=== PATIENT | female | born 1955 | race Caucasian/White ===

== ENCOUNTER 2020-05-18 09:13 | Outpatient (CLI) | payer MEDICARE, OTHER ==
--- NOTE | 2020-05-18 16:35 | Ultrasound Report ---
PROCEDURE: Head or Neck Soft Tissue INDICATIONS: ANT CERV LYMPHADENOPATHY TECHNIQUE: Real time scanning was performed of the neck region of interest, with image documentation . COMPARISON: None. FINDINGS: No suspicious soft tissue neck abnormality seen bilaterally. There are normal-appearing ri ght-sided cervical chain lymph nodes correlating with area of concern. They demonstrate reniform morp hology with central fatty hilum and normal cortex. The left neck was imaged for comparison demonstrat ing similar appearing normal lymph nodes. IMPRESSION: Normal appearing right-sided cervical chain lymph nodes in the area of clinical concern. These appear similar to the left neck. Reviewed by: Jorge Arias MD on 05/18/2020 4:33 PM PST Approved by: Jorge Arias MD on 05/18/2020 4:33 PM PST Station ID: [id number]
== END 2020-05-18 09:14 | disposition home or self-care (01) ==
LOC: DI 09:13
PROVIDERS: ATTEND Registered Nurse
DX: R59.0 Localized enlarged lymph nodes (principal); I34.1 Nonrheumatic mitral (valve) prolapse
CPT/HCPCS: 76536

== ENCOUNTER 2020-05-18 09:17 | Outpatient (CLI) | payer MEDICARE, OTHER ==
--- NOTE | 2020-05-18 10:27 | DEXA Report ---
PROCEDURE: Dexa Spine and/or Hip INDICATIONS: POSTMENOPAUSAL TECHNIQUE: Dual energy x-ray absorptiometry (DXA) was performed on a Fandium System. Regions measur ed are the AP Spine, femoral neck, and if needed forearm. COMPARISON: None. FINDINGS: Lumbar Spine: Bone Mineral Density 0.954 g/cm/cm,T score -1.9, osteopenia Left Femoral Neck: Bone Mineral Density 0.867 g/cm/cm, T score -1.1, osteopenia (T score greater or equal to -1.0: NORMAL) (T score from -1.1 to -2.4: OSTEOPENIA) (T score less than or equal to -2.5 to: OSTEOPOROSIS) Impression: Osteopenia. Patient is at increased risk for fracture. Patients with diagnosis of osteoporosis or osteopenia should have regular bone mineral density assess ment. For those eligible for Medicare, routine testing is allowed once every 2 years. Testing frequ ency can be increased for patients who have rapidly progressing disease or for those who are receivin g medical therapy to restore bone mass. Reviewed by: Jorge Arias MD on 05/18/2020 10:25 AM PST Approved by: Jorge Arias MD on 05/18/2020 10:25 AM PST Station ID: [id number]
== END 2020-05-18 09:18 | disposition home or self-care (01) ==
LOC: DI 09:17
PROVIDERS: ATTEND Registered Nurse
DX: M85.89 Other specified disorders of bone density and structure, multiple sites (principal); Z78.0 Asymptomatic menopausal state; R59.0 Localized enlarged lymph nodes; I34.1 Nonrheumatic mitral (valve) prolapse
CPT/HCPCS: 76536; 77080

== ENCOUNTER 2020-05-31 07:36 | Outpatient (CLI) | payer MEDICARE | END 2020-05-31 07:37 | disposition home or self-care (01) | LOC: DI 07:36 | PROVIDERS: ATTEND Registered Nurse | DX: I34.1 Nonrheumatic mitral (valve) prolapse (principal); I49.3 Ventricular premature depolarization; I51.7 Cardiomegaly | CPT/HCPCS: 93306 ==

== ENCOUNTER 2020-07-26 09:47 | Outpatient (CLI) | payer MEDICARE, OTHER ==
--- NOTE | 2020-07-27 09:01 | Mammography Report ---
BILATERAL DIGITAL SCREENING MAMMOGRAM 3D/2D WITH EXAGGERATED CC: 07/26/2020 CLINICAL: Routine screening. Comparison is made to exams dated: 07/04/2014 mammogram and 04/26/2014 mammogram - [facility]. The tissue of both breasts is predominantly fatty. No significant masses, calcifications, or other findings are seen in either breast. There has been no significant interval change. IMPRESSION: NEGATIVE There is no mammographic evidence of malignancy. A 1 year screening mammogram is recommended. This exam was interpreted at Station ID: [id number]. NOTE: For mammograms, a report in lay terms will be sent to the patient. Approximately 15% of breast malignancies will not be visualized mammographically. In the management of a palpable breast mass, a negative mammogram must not discourage biopsy of a clinically suspicious lesion. Electronically Signed By: Tee Quinonez M.D., jr/heaven:07/26/2020 16:29:26 ACR BI-RADS Category 1: Negative 3341F PARENCHYMAL PATTERN: (F) - The breast(s) demonstrate(s) diffuse fatty replacement. BI-RADS CATEGORY: (1) - 1 RECOMMENDATION: (ANNUAL) - Recommend routine annual screening mammography. [id number] 1 year screening LATERALITY: (B)
== END 2020-07-26 09:48 | disposition home or self-care (01) ==
LOC: DI.S 09:47
PROVIDERS: ATTEND Registered Nurse
DX: Z12.31 Encounter for screening mammogram for malignant neoplasm of breast (principal)

== ENCOUNTER 2021-08-04 10:23 | Outpatient (CLI) | payer MEDICARE ==
--- NOTE | 2021-08-04 11:00 | XRAY Report ---
PROCEDURE: Knee 3 View LT INDICATIONS: PAIN OF LEFT KNEE JOINT TECHNIQUE: 3 views of the left knee(s) were acquired. COMPARISON: None. FINDINGS: Bones: No fractures or dislocations. No suspicious bony lesions. At the superior aspect of the pat julieta, there is an enthesophyte seen. Mild, age-appropriate degenerative changes are seen, which are worst medially. Soft tissues: No joint effusion. No suspicious soft tissue calcifications. IMPRESSION: No significant plain film abnormality is seen for age. If it would be helpful for clinical management decision making, please consider a dedicated, schedule d knee MRI for further evaluation (assuming that there is no contraindication). Reviewed by: Kael He MD on 08/04/2021 9:58 AM [facility] Approved by: Kael He MD on 08/04/2021 9:58 AM [facility] Station ID: [id number]
== END 2021-08-04 10:24 | disposition home or self-care (01) ==
LOC: DI.S 10:23
PROVIDERS: ATTEND Registered Nurse
DX: M25.562 Pain in left knee (principal)

== ENCOUNTER 2022-01-01 07:21 | Day surgery (SDC) | payer MEDICARE ==
[2022-01-01] MEDS ORDERED: LACTATED RINGERS 1,000 ML IV ONE ×2 (07:29→09:06)
[2022-01-01] MEDS ORDERED: LIDOCAINE-MPF 2% 5 ML VIAL ONE (08:13)
[2022-01-01] MEDS ORDERED: PROPOFOL 500 MG/50 ML 500 MG/50 ML VIAL ONE (08:13)
--- NOTE | 2022-01-01 08:13 | ANESTHESIA ---
Pre-Anesthesia VS, & Labs - Diagnosis screening - Procedure colonoscopy Vital Signs: Temp Pulse Resp BP Pulse Ox 36.6 C 80 18 161/90 H 99 01/01/22 07:29 01/01/22 07:29 01/01/22 07:29 01/01/22 07:29 01/01/22 07:29 Height: 5 ft 7 in Weight (kg): 61 kg Body Mass Index: 21.0 BMI Classification: Healthy weight - NPO >8 hours - Is Patient ?: No - Lab Results Lab results reviewed: Yes Home Medications and Allergies No Known Home Medications 08/11/14 Allergies/Adverse Reactions: Allergies Allergy/AdvReac Type Severity Reaction Status Date / Time No Known Drug Allergies Allergy Verified 01/01/22 07:44 Anes History & Medical History - Anesthetic History Anesthesia Complications: reports: No previous complications Family history of Anesthesia Complications: Denies Family history of Malignant Hyperthermia: Denies - Medical History Cardiovascular: reports: None Pulmonary: reports: None Gastrointestinal: reports: None Urinary: reports: None Musculoskeletal: reports: None Endocrine/Autoimmune: reports: None Skin: reports: Other Psychosocial: reports: No issues indicated History of Cancer?: No - Surgical History General: reports: Colonoscopy Orthopedic: reports: Other Dermatologic: reports: Skin cancer surgery Exam General: Alert, Oriented x3, Cooperative Dental: WNL Mouth Openin Fingerbreadth Neck Mobility: Normal Mallampati classification: II Thyromental Distance: 4-6 cm Respiratory: Lungs clear, Normal breath sounds, No respiratory distress Cardiovascular: Regular rate Neurological: Normal speech Mental/Cognitive Status: Alert/Oriented X3, Normal for patient Cognitive Status: Within normal limits Plan Anesthesia Type: Total IV Consent for Procedure(s) Verified and Reviewed: Yes Code Status: Attempt Resuscitation ASA classification: 2-Mild systemic disease Is this case an emergency?: No
[2022-01-01] MEDS ORDERED: GLYCOPYRROLATE 1 MG/5 ML VIAL ONE (08:59)
[2022-01-01 09:46] VITALS: BP 155/84
--- NOTE | 2022-01-01 11:30 | ANESTHESIA POST OP EVALUATION ---
Anesthesia Post Eval - Post Anesthesia Eval Vitals: Last Vital Signs Temp 36.5 C 01/01/22 09:43 Pulse 75 01/01/22 09:43 Resp 16 01/01/22 09:43 BP 155/84 H 01/01/22 09:43 Pulse Ox 100 01/01/22 09:43 CV Function Including HR & BP: Stable Pain Control: Satisfactory Nausea & Vomiting: Negative Mental Status: Baseline Respiratory Status: Airway Patent Hydration Status: Satisfactory Anesthesia Complications: None
== END 2022-01-01 07:22 | disposition home or self-care (01) ==
LOC: SDS 07:21
PROVIDERS: ATTEND Surgery
PROC: 0DBK8ZX Excision of Ascending Colon, Via Natural or Artificial Opening Endoscopic, Diagnostic (ICD-10-PCS; principal; 2022-01-01 08:30)
DX: Z12.11 Encounter for screening for malignant neoplasm of colon (principal); D12.2 Benign neoplasm of ascending colon; K64.8 Other hemorrhoids; R00.1 Bradycardia, unspecified; Z85.828 Personal history of other malignant neoplasm of skin; Z86.010 Personal history of colon polyps
CPT/HCPCS: 45380; J7120

== ENCOUNTER 2022-08-12 15:00 | Outpatient (CLI) | payer MEDICARE | END 2022-08-12 23:59 | disposition home or self-care (01) | LOC: LAB 15:00 | PROVIDERS: ATTEND Registered Nurse | DX: L02.91 Cutaneous abscess, unspecified (principal) | CPT/HCPCS: 87070; 87181; 87205 ==

== ENCOUNTER 2022-09-11 15:48 | Outpatient (CLI) | payer MEDICARE ==
--- NOTE | 2022-09-11 18:05 | XRAY Report ---
PROCEDURE: Ribs w/PA Chest LT INDICATIONS: LEFT SIDED RIB PAIN TECHNIQUE: 2 views of the left ribs were acquired, along with a single view chest. COMPARISON: Chest films dated 01/03/2022 FINDINGS: Surgical changes and devices: None. Bones and chest wall: No fractures or dislocations. No suspicious bony lesions. Overlying soft tis sues appear unremarkable. Lungs and pleura: No pleural effusions or pneumothorax. Lungs appear clear. Mediastinum: Mediastinal contours appear normal. Heart size is normal. IMPRESSION: No evidence of displaced left rib fracture. No evidence of acute pulmonary process. Reviewed by: Victorino Red MD on 09/11/2022 6:04 PM PDT Approved by: Victorino Red MD on 09/11/2022 6:04 PM PDT Station ID: [id number]
== END 2022-09-11 15:49 | disposition home or self-care (01) ==
LOC: DI.S 15:48
PROVIDERS: ATTEND Physician Assistant Medical
DX: R07.81 Pleurodynia (principal)

== ENCOUNTER 2023-08-05 09:55 | Emergency (ER) | payer MEDICARE ==
[2023-08-05 11:14] VITALS: BP 173/82; O2SAT 96
--- NOTE | 2023-08-05 11:23 | ED Physician Documentation ---
History of Present Illness - Stated complaint Stated Complaint: HIGH BP - Chief complaint Chief Complaint: Cardiac - History obtained from History obtained from: Patient - Additonal information Additional information: Patient is a 68-year-old female with a history of hypertension presenting for evaluation of elevated blood pressure. Patient states she was recently found to have an aortic aneurysm and is scheduled for operative repair through the emergency [facility] in August. She has been having elevated blood pressure recently. She was on just losartan. Last week she went to see the cardioth oracic surgeon and noted that her blood pressure was elevated (Systolic 180s) and also started her on metoprolol. She has been taking this for approximately 8 days now. She was having routine outpatient labs done this morning and [place] [facility] [place] as she has also noticed that it has been high at home and she was not sure if it was accurate. They noted that her blood pressure reading was elevated with systolics in the 200s and recommended she come immediately to the emergency department. Patient denies chest pain or shortness of air. She denies numbness or weakness in arms and legs. Denies headache or dizziness. Review of Systems Constitutional: denies: Fever Cardiac: denies: Chest pain / pressure Respiratory: denies: Dyspnea GI: denies: Abdominal Pain, Vomiting Neurologic: denies: Syncope, Headache PD PAST MEDICAL HISTORY - Past Medical History Past Medical History: Yes Cardiovascular: None Respiratory: None Endocrine/Autoimmune: None GI: None : None HEENT: None Psych: None Musculoskeletal: None Derm: Other Other Past Medical History: Aortic Aneurysm - Past Surgical History Past Surgical History: Yes General: Colonoscopy Ortho: Other Derm: Skin cancer surgery - Present Medications Home Medications: Ambulatory Orders Medication Instructions Recorded Confirmed LORazepam [Ativan] 0.5 mg PO PRN PRN 08/05/23 08/05/23 Losartan [Cozaar] 50 mg PO DAILY 08/05/23 08/05/23 Metoprolol Succinate [Toprol Xl] 25 mg PO DAILY 08/05/23 08/05/23 Prednisone [Taco] 4 mg PO DAILY 08/05/23 08/05/23 - Allergies Allergies/Adverse Reactions: Allergies Allergy/AdvReac Type Severity Reaction Status Date / Time No Known Drug Allergies Allergy Verified 08/05/23 10:07 - Social History Does the pt smoke?: No Smoking Status: Never smoker Does the pt drink ETOH?: No Does the pt have substance abuse?: No - Immunizations Immunizations are current?: No PD ED PE NORMAL - General General: Alert and oriented X 3, No acute distress, Well developed/nourished - HEENT HEENT: Atraumatic, Moist mucous membranes, Pharynx benign - Neck Neck: Supple, no meningeal sign - Cardiac Cardiac: RRR, Strong equal pulses - Respiratory Respiratory: No respiratory distress, Clear bilaterally - Abdomen Abdomen: Normal bowel sounds, Soft, Non tender, Non distended - Derm Derm: Warm and dry - Extremities Extremities: No edema - Neuro Neuro: Alert and oriented X 3, network support specialist 2-12 intact, No motor deficit, No sensory deficit, Normal speech Results - Vitals Vitals: Vital Signs - 24 hr 08/05/23 08/05/23 08/05/23 10:00 11:07 11:13 Temperature 36.3 C L Heart Rate 73 70 67 Respiratory 16 17 18 Rate Blood Pressure 206/87 H 173/82 H 173/82 H O2 Saturation 99 97 96 08/05/23 11:31 Temperature Heart Rate 68 Respiratory 20 Rate Blood Pressure 173/82 H O2 Saturation 96 Oxygen O2 Source Room air PD Medical Decision Making - ED course ED course: Patient presenting for evaluation of high blood pressure. She was sent from PCPs office where she was getting outpatient labs. Does not seem like she saw the provider though today and was sent by staff. She is asymptomatic. Initial blood pressure systolic is 206. On recheck Blood pressure is 173/82. She has remained asymptomatic. Per [facility] policies on asymptomatic hypertension there is no indications for rapidly lowering her blood pressure here today. Recommend close follow-up with her primary care provider for recheck in the office and to discuss further blood pressure medication titration. Patient counseled on conc erning symptoms to return for. Departure - Departure Disposition: 01 Home, Self Care Clinical Impression: Asymptomatic hypertension Condition: Stable Instructions: ED Hypertension Conf Out Of Control Comments: You need close follow up with [employer] Lita regarding your blood pressure. It has improved to 173/82 without any specific treatment in the ER and we want Do not want to aggressively lower your blood pressure too quickly as this can cause other issues such as fainting spells or strokes. Please continue with your losartan and metoprolol. Please keep a record of your blood pressures at home once your cuff arrives. Return to the ER with any worsening symptoms. Forms: PCP List Discharge Date/Time: 08/05/23 11:31
== END 2023-08-05 11:31 | disposition home or self-care (01) ==
LOC: ED 09:55
DX: I10 Essential (primary) hypertension (principal)
CPT/HCPCS: 99281; 99283

== ENCOUNTER 2024-01-11 14:31 | Emergency (ER) | payer MEDICARE ==
--- NOTE | 2024-01-11 14:45 | ED Physician Documentation ---
PD HPI Fall - Stated complaint Stated Complaint: FELL DOWN STEP/INJURY - History obtained from History obtained from: Patient, Family - Additional information Additional information: She is about 4 months out from open heart surgery for an aortic aneurysm repair. She did have perioperative atrial fibrillation and continues to be anticoagulated for that. She had a mechanical fall at her son's house tripping over the edge of a door landing on her right side. She hit her head without loss of consciousness. The main area of pain is the right shoulder, she cannot range it at all. She also has moderate pain of the right hip with a large bruise forming and 2 spots on her foot and ankle that are starting to hurt. PD PAST MEDICAL HISTORY - Past Medical History Cardiovascular: None Respiratory: None Endocrine/Autoimmune: None GI: None : None HEENT: None Psych: None Musculoskeletal: None Derm: Other - Past Surgical History Past Surgical History: Yes General: Colonoscopy Ortho: Other Derm: Skin cancer surgery - Present Medications Home Medications: Ambulatory Orders Medication Instructions Recorded Confirmed LORazepam [Ativan] 0.5 mg PO PRN PRN 08/05/23 08/05/23 Losartan [Cozaar] 50 mg PO DAILY 08/05/23 01/11/24 Metoprolol Succinate [Toprol Xl] 25 mg PO DAILY 08/05/23 08/05/23 Apixaban [Eliquis] 1 tab PO DAILY 01/11/24 01/11/24 - Allergies Allergies/Adverse Reactions: Allergies Allergy/AdvReac Type Severity Reaction Status Date / Time No Known Drug Allergies Allergy Verified 08/05/23 10:07 - Social History Does the pt smoke?: No Smoking Status: Never smoker Does the pt drink ETOH?: No Does the pt have substance abuse?: No - Immunizations Immunizations are current?: No PD ED PE NORMAL - Vitals Vital signs reviewed: Yes - General General: Alert and oriented X 3, No acute distress - HEENT HEENT: PERRL, EOMI, Other (There is a small abrasion about quarter size on the right forehead) - Neck Neck: Supple, no meningeal sign, No bony TTP - Cardiac Cardiac: RRR, No murmur - Respiratory Respiratory: No respiratory distress, Clear bilaterally - Abdomen Abdomen: Non tender - Back Back: No CVA TTP, No spinal TTP - Derm Derm: Normal color, Warm and dry - Extremities Extremities: Other (see MDM text box too small) Results - Vitals Vitals: Vital Signs - 24 hr 01/11/24 14:32 Temperature 36.9 C Heart Rate 72 Respiratory 16 Rate Blood Pressure 104/85 H O2 Saturation 100 Oxygen O2 Source Room air - Rads (name of study) Right humerus x-ray demonstrating a right humeral neck fracture Relevant Findings:: Final report received, EMP independent interpretation of test CT of the head is without acute disease Relevant Findings:: Final report received, EMP independent interpretation of test Right hip x-ray without acute abnormality Relevant Findings:: Final report received, EMP independent interpretation of test Right foot x-ray is unremarkable Relevant Findings:: Final report received, EMP independent interpretation of test Right ankle x-ray is negative Relevant Findings:: Final report received, EMP independent interpretation of test PD Medical Decision Making - ED course ED course: Extremity exam: Severely tender about the right glenohumeral joint without obvious deformity. Cannot range it at all. There is a large bruise over the posterolateral right hip, but the hip itself does not seem particularly tender. She is tender over both the lateral malleolus of the right ankle and the proximal fifth metatarsal. She presents with multiple injuries after a fall, the main 1 being the right shoulder. She also has some hip pain and a contusion there and a minor head injury but she is on anticoagulation so extensive imaging was done with the only positive finding being the humeral fracture. She was placed in a sling. I have low pretest probability for hip fracture given that she can walk and really is not tender over the hip anteriorly. She is given close return precautions. Offered narcotic analgesia but she has oxycodone leftover from prior sternotomy surgery. She did receive 1 mg of IM Dilaudid here with improvement in her pain. Departure - Departure Disposition: 01 Home, Self Care Clinical Impression: Chronic anticoagulation, Contusion of right foot Injury of hip and thigh Qualifiers: Encounter type: initial encounter Laterality: right Qualified Code(s): S79.911A - Unspecified injury of right hip, initial encounter; S79.921A - Unspecified injury of right thigh, initial encounter Head injury Qualifiers: Encounter type: initial encounter Qualified Code(s): S09.90XA - Unspecified injury of head, initial encounter Right humeral fracture Qualifiers: Encounter type: initial encounter Humerus Location: proximal Fracture type: closed Fracture morphology: other fracture Fracture alignment: nondisplaced Qualified Code(s): S42.294A - Other nondisplaced fracture of upper end of right humerus, initial encounter for closed fracture Condition: Good Record reviewed to determine appropriate education?: Yes Instructions: ED Fx Shoulder Follow-Up: [facility]opedic [facility] [Provider Group] - Within 1 week Comments: The only positive finding was the proximal humerus fracture. You can use the sling as needed but it is okay to start gentle range of motion exercises when you are able. You can take the oxycodone that you have at home anywhere from half a tablet to 2 tablets every 6 hours for pain. Follow-up with our ortho pedic surgeons for further evaluation and treatment. If you develop new or worsening symptoms or if the hip pain were to progress such that she could not walk, please return for reevaluation.
[2024-01-11] MEDS: HYDROmorphone 1 MG/ML CARPUJECT IM STA (15:12)
[2024-01-11] MEDS: ONDANSETRON ODT 4 MG TABLET TL STA (15:13)
--- NOTE | 2024-01-11 15:30 | CT Report ---
PROCEDURE: Head WO INDICATIONS: head inj TECHNIQUE: Noncontrast 4.5 mm thick angled axial sections acquired from the foramen magnum to the vertex. For r adiation dose reduction, the following was used: automated exposure control, adjustment of mA and/or kV according to patient size. COMPARISON: None. FINDINGS: Image quality: Excellent. CSF spaces: Basal cisterns are patent. No extra-axial fluid collections. Ventricles are symmetric in size and shape. Brain: No midline shift. No intracranial masses or hemorrhage. Hypodensities in the subcortical and periventricular white matter are most commonly seen in setting of chronic microvascular ischemic susan nges. Age-related cerebral and cerebellar volume loss is seen. Intracranial vascular calcifications a re noted in the internal carotid arteries. Skull and face: Calvarium and visualized facial bones are intact, without suspicious lesions. Sinuses:: Mucosal thickening in the maxillary sinuses. IMPRESSION: No acute intracranial pathology. Reviewed by: Óscar Luong MD on 01/11/2024 3:29 PM PDT Approved by: Óscar Luong MD on 01/11/2024 3:29 PM PDT Station ID: [id number]
--- NOTE | 2024-01-11 16:11 | XRAY Report ---
PROCEDURE: Humerus RT INDICATIONS: Right shoulder injury` TECHNIQUE: 2 views of the humerus were acquired. COMPARISON: Correlation is made with the accompanying imaging. FINDINGS: Bones: Focal irregularity is seen involving the right humeral neck. No dislocation. The visualized r ibs appear intact. Soft tissues: No suspicious soft tissue calcifications or masses. IMPRESSION: Strong suspicion for right humeral neck fracture, which is poorly seen. Reviewed by: Kael He MD on 01/11/2024 3:10 PM [facility] Approved by: Kael He MD on 01/11/2024 3:10 PM [facility] Station ID: [id number]
--- NOTE | 2024-01-11 16:12 | XRAY Report ---
PROCEDURE: Hip w/Pelvis 2-3V RT INDICATIONS: hip inj TECHNIQUE: AP view of the pelvis acquired, with a crosstable lateral view of the right hip. COMPARISON: None. FINDINGS: Bones: No fractures or dislocations. No suspicious bony lesions. Age-appropriate degenerative carroll es are seen. Soft tissues: No suspicious soft tissue calcifications or masses. IMPRESSION: No acute bony abnormality can be seen on these plain films. Reviewed by: Kael He MD on 01/11/2024 3:11 PM [facility] Approved by: Kael He MD on 01/11/2024 3:11 PM [facility] Station ID: [id number]
--- NOTE | 2024-01-11 16:13 | XRAY Report ---
PROCEDURE: Ankle 3+V RT INDICATIONS: foot/ankle inj TECHNIQUE: 3 views of the ankle were acquired. COMPARISON: Correlation is made with the accompanying imaging. FINDINGS: Bones: No fractures or dislocations. Ankle mortise is normally aligned. No suspicious bony lesions . The talar dome demonstrates an unremarkable appearance. Age-appropriate degenerative changes are seen. Soft tissues: No tibiotalar joint effusion. Achilles tendon appears normal. IMPRESSION: Plain films within normal limits for age, without an acute abnormality identified. Reviewed by: Kael He MD on 01/11/2024 3:12 PM [facility] Approved by: Kael He MD on 01/11/2024 3:12 PM [facility] Station ID: [id number]
--- NOTE | 2024-01-11 16:13 | XRAY Report ---
PROCEDURE: Foot 3+V RT INDICATIONS: foot/ankle inj TECHNIQUE: 3 views of the foot were acquired. COMPARISON: Correlation is made with the accompanying imaging. FINDINGS: Bones: No fractures or dislocations. No suspicious bony lesions. Generalized degenerative changes a re seen, including along the Lisfranc joint. Incidental note is made of an enthesophyte at the Achil les insertion. Soft tissues: No tibiotalar joint effusion. Achilles tendon appears normal. IMPRESSION: No acute bony abnormality. Reviewed by: Kael He MD on 01/11/2024 3:11 PM [facility] Approved by: Kael He MD on 01/11/2024 3:11 PM [facility] Station ID: [id number]
[2024-01-11 16:57] VITALS: BP 112/78; O2SAT 98
== END 2024-01-11 16:47 | disposition home or self-care (01) ==
LOC: ED 14:31
DX: S09.90XA Unspecified injury of head, initial encounter (principal); S70.01XA Contusion of right hip, initial encounter; S00.81XA Abrasion of other part of head, initial encounter; S90.31XA Contusion of right foot, initial encounter; S79.921A Unspecified injury of right thigh, initial encounter; S42.201A Unspecified fracture of upper end of right humerus, initial encounter for closed fracture; W18.09XA Striking against other object with subsequent fall, initial encounter; W10.8XXA Fall (on) (from) other stairs and steps, initial encounter; Y92.008 Other place in unspecified non-institutional (private) residence as the place of occurrence of the external cause; I48.91 Unspecified atrial fibrillation; Z79.01 Long term (current) use of anticoagulants; Z86.79 Personal history of other diseases of the circulatory system; Z98.890 Other specified postprocedural states
CPT/HCPCS: 70450; 73060; 73502; 73610; 73630; 96372; 99284; 99285; J1170; Q0162

== ENCOUNTER 2024-01-18 14:37 | Outpatient (CLI) | payer MEDICARE ==
--- NOTE | 2024-01-18 18:03 | XRAY Report ---
PROCEDURE: Shoulder 2+V RT INDICATIONS: SHOULDER PAIN TECHNIQUE: 3 views of the shoulder were acquired. COMPARISON: 01/11/2024. FINDINGS: Bones: Again noted is displaced and impacted right proximal humeral shaft fracture. Overall right sh oulder alignment isn't from prior study. No new fracture or dislocation. Acromioclavicular joint and glenohumeral joint osteoarthritic changes are seen. No suspicious bony lesions. Visualized ribs appe ar intact. Soft tissues: No suspicious soft tissue calcifications. The visualized lungs are within normal limi ts. IMPRESSION: Impacted and displaced right humeral surgical neck/proximal shaft fracture not significantly changed from prior study. No new fracture or dislocation. Right shoulder joint osteoarthritis. Reviewed by: Dawood Balderas MD on 01/18/2024 6:02 PM PDT Approved by: Dawood Balderas MD on 01/18/2024 6:02 PM PDT Station ID: [id number]
== END 2024-01-18 14:38 | disposition home or self-care (01) ==
LOC: DI 14:37
PROVIDERS: ATTEND Orthopaedic Surgery
DX: S42.291A Other displaced fracture of upper end of right humerus, initial encounter for closed fracture (principal); M19.011 Primary osteoarthritis, right shoulder

== ENCOUNTER 2024-02-04 12:07 | Outpatient (CLI) | payer MEDICARE ==
--- NOTE | 2024-02-04 15:04 | XRAY Report ---
PROCEDURE: Shoulder 2+V RT INDICATIONS: RIGHT HUMERUS FX TECHNIQUE: 4 views of the shoulder were acquired. COMPARISON: Similar study 01/18/2024. FINDINGS: Bones: No new fractures or dislocations. The right humeral head/neck junction fracture previously p resent shows no change in near normal alignment and interval callus bridging the fracture plane. No s uspicious bony lesions. Visualized ribs appear intact. Soft tissues: No suspicious soft tissue calcifications. The visualized lungs are within normal limi ts. IMPRESSION: No acute bony abnormality. Expected appearance during healing of a subcapital humeral neck fracture i n near normal anatomic alignment. Reviewed by: José Hays MD on 02/04/2024 3:02 PM PDT Approved by: José Hays MD on 02/04/2024 3:02 PM PDT Station ID: [id number]
== END 2024-02-04 12:08 | disposition home or self-care (01) ==
LOC: DI 12:07
PROVIDERS: ATTEND Orthopaedic Surgery
DX: S42.214D Unspecified nondisplaced fracture of surgical neck of right humerus, subsequent encounter for fracture with routine healing (principal)

== ENCOUNTER 2024-03-03 12:09 | Outpatient (CLI) | payer MEDICARE ==
--- NOTE | 2024-03-03 15:52 | XRAY Report ---
PROCEDURE: Shoulder 2+V RT INDICATIONS: HUMERUS FX TECHNIQUE: 3 views of the shoulder were acquired. COMPARISON: 02/04/2024 FINDINGS: Bones: Proximal humerus slightly impacted fracture is similar to prior. Background mild degenerative changes. There is some evidence of interval healing. Partially seen sternotomy wires. Soft tissues: No suspicious calcifications. IMPRESSION: Similar proximal humerus fracture. Reviewed by: Chay Moody MD on 03/03/2024 3:50 PM PDT Approved by: Chay Moody MD on 03/03/2024 3:50 PM PDT Station ID: [id number]
== END 2024-03-03 12:10 | disposition home or self-care (01) ==
LOC: DI 12:09
PROVIDERS: ATTEND Physician Assistant Surgical
DX: S42.214D Unspecified nondisplaced fracture of surgical neck of right humerus, subsequent encounter for fracture with routine healing (principal); M19.011 Primary osteoarthritis, right shoulder